=== PATIENT | female | born 1975 | race Caucasian/White ===

== ENCOUNTER → 2024-02-24 19:06 | Outpatient (REF) | payer BC, SELFPAY | LOC: WDC 19:06 | PROVIDERS: ATTENDING PHYSICIAN Nurse Practitioner Family | DX: Z12.31 Encounter for screening mammogram for malignant neoplasm of breast (principal) | CPT/HCPCS: 77063; 77067 ==

== ENCOUNTER → 2025-02-27 15:12 | Outpatient (REF) | payer BC, SELFPAY | LOC: WDC 15:12 | PROVIDERS: ATTENDING PHYSICIAN Nurse Practitioner Family | DX: Z12.31 Encounter for screening mammogram for malignant neoplasm of breast (principal) | CPT/HCPCS: 77063; 77067 ==